=== PATIENT | female | born 1990 | race American Indian/Alaskan Native ===

== ENCOUNTER 2019-02-23 13:22 | Outpatient (CLI) | payer SELFPAY ==
[2019-02-23 13:50] VITALS: BP 119/69
[2019-02-23] MEDS ORDERED: LACTATED RINGERS 500 ML IV ONE (13:58)
[2019-02-23 14:19] LABS: Bilirubin,Urine Negative (Negative); Color,Urine Yellow (Yellow)
[2019-02-23 14:20] LABS: Blood,Urine Negative (Negative)
[2019-02-23 14:21] LABS: Mucus,Urine FEW /HPF
== END 2019-02-23 14:35 | disposition left against medical advice (07) ==
LOC: TRG 13:22
PROVIDERS: ATTEND Obstetrics & Gynecology
DX: O47.02 False labor before 37 completed weeks of gestation, second trimester (principal); Z3A.24 24 weeks gestation of pregnancy
CPT/HCPCS: 81001

== ENCOUNTER 2020-06-19 08:03 | Emergency (ER) | payer MEDICAID ==
--- NOTE | 2020-06-19 08:11 | Emergency Department Report ---
ED Abdominal Pain HPI - General Stated Complaint: SIDE PAIN X 3 DAYS PUI?: No Time Seen by Provider: 06/19/20 08:09 - History of Present Illness Initial Comments: This is a 29-year-old female who presents to the ED complaining of right sided flank pain that began 3 days ago. Patient states that her last menstrual period June 03, 2020. Patient states pain does not radiate anywhere else. Patient states pain is aching and intermittent for the past 3 days. Patient denies fever/chills/nausea vomiting/abdominal abnormal vaginal bleeding or dysuria. MD Complaint: abdominal pain, flank pain Location: RUQ, R flank Radiation: none Migration to: no migration - Related Data Previous Rx's Medication Instructions Recorded Last Taken Type Phenazopyridine [Pyridium] 200 mg PO BID #10 tab 06/19/20 Unknown Rx Sulfamethoxazole/Trimethoprim 1 each PO BID #14 tablet 06/19/20 Unknown Rx [Bactrim DS TAB] Allergies Allergy/AdvReac Type Severity Reaction Status Date / Time No Known Allergies Allergy Verified 02/23/19 13:58 ED Review of Systems ROS: Stated complaint: SIDE PAIN X 3 DAYS Other details as noted in HPI Comment: All other systems reviewed and negative ED Past Medical Hx - Past Medical History Hx Hypertension: No Hx Diabetes: No Hx Deep Vein Thrombosis: No Hx Renal Disease: No Hx Sickle Cell Disease: No Hx Seizures: No Hx Asthma: No Hx HIV: No - Social History Smoking Status: Former Smoker - Medications Home Medications: Home Medications Medication Instructions Recorded Confirmed Last Taken Type Phenazopyridine [Pyridium] 200 mg PO BID #10 tab 06/19/20 Unknown Rx Sulfamethoxazole/Trimethoprim 1 each PO BID #14 tablet 06/19/20 Unknown Rx [Bactrim DS TAB] ED Physical Exam - General General appearance: alert, in no apparent distress - Head Head exam: Present: atraumatic, normocephalic - Eye Eye exam: Present: normal appearance - ENT ENT exam: Present: mucous membranes moist - Neck Neck exam: Present: normal inspection - Respiratory Respiratory exam: Present: normal lung sounds bilaterally. Absent: respiratory distress - Cardiovascular Cardiovascular Exam: Present: regular rate, normal rhythm. Absent: systolic murmur, diastolic murmur, rubs, gallop - GI/Abdominal GI/Abdominal exam: Present: soft, normal bowel sounds. Absent: distended, tenderness, guarding, mass - Extremities Exam Extremities exam: Present: normal inspection - Back Exam Back exam: Present: normal inspection - Neurological Exam Neurological exam: Present: alert, oriented X3 - Psychiatric Psychiatric exam: Present: normal affect, normal mood - Skin Skin exam: Present: warm, dry, intact, normal color. Absent: rash ED Course Vital Signs 06/19/20 08:10 Temperature 98.0 F Pulse Rate 84 Respiratory 14 Rate Blood Pressure 128/88 O2 Sat by Pulse 98 Oximetry ED Medical Decision Making - Lab Data Result diagrams: 06/19/20 08:35 06/19/20 08:35 Laboratory Last Values WBC 5.4 K/mm3 (4.5-11.0) 06/19/20 08:35 RBC 4.53 M/mm3 (3.65-5.03) 06/19/20 08:35 Hgb 11.6 gm/dl (10.1-14.3) 06/19/20 08:35 Hct 36.3 % (30.3-42.9) 06/19/20 08:35 MCV 80 fl (79-97) 06/19/20 08:35 MCH 26 pg (28-32) L 06/19/20 08:35 MCHC 32 % (30-34) 06/19/20 08:35 RDW 18.6 % (13.2-15.2) H 06/19/20 08:35 Plt Count 240 K/mm3 (140-440) 06/19/20 08:35 Lymph % (Auto) Belt Loop Machine Operator 06/19/20 08:35 Add Manual Diff Complete 06/19/20 08:35 Total Counted 100 06/19/20 08:35 Seg Neutrophils % Belt Loop Machine Operator 06/19/20 08:35 Seg Neuts % (Manual) 14.0 % (40.0-70.0) L 06/19/20 08:35 Lymphocytes % (Manual) 70.0 % (13.4-35.0) H 06/19/20 08:35 Reactive Lymphs % (Man) 1.0 % 06/19/20 08:35 Monocytes % (Manual) 11.0 % (0.0-7.3) H 06/19/20 08:35 Eosinophils % (Manual) 4.0 % (0.0-4.3) 06/19/20 08:35 Nucleated RBC % Not Reportable 06/19/20 08:35 Seg Neutrophils # Man 0.8 K/mm3 (1.8-7.7) L 06/19/20 08:35 Band Neutrophils # 0.0 K/mm3 06/19/20 08:35 Lymphocytes # (Manual) 3.8 K/mm3 (1.2-5.4) 06/19/20 08:35 Abs React Lymphs (Man) 0.1 K/mm3 06/19/20 08:35 Monocytes # (Manual) 0.6 K/mm3 (0.0-0.8) 06/19/20 08:35 Eosinophils # (Manual) 0.2 K/mm3 (0.0-0.4) 06/19/20 08:35 Basophils # (Manual) 0.0 K/mm3 (0.0-0.1) 06/19/20 08:35 Metamyelocytes # 0.0 K/mm3 06/19/20 08:35 Myelocytes # 0.0 K/mm3 06/19/20 08:35 Promyelocytes # 0.0 K/mm3 06/19/20 08:35 Blast Cells # 0.0 K/mm3 06/19/20 08:35 WBC Morphology Not Reportable 06/19/20 08:35 Hypersegmented Neuts Not Reportable 06/19/20 08:35 Hyposegmented Neuts Not Reportable 06/19/20 08:35 Hypogranular Neuts Not Reportable 06/19/20 08:35 Smudge Cells Not Reportable 06/19/20 08:35 Toxic Granulation Not Reportable 06/19/20 08:35 Toxic Vacuolation Not Reportable 06/19/20 08:35 Dohle Bodies Not Reportable 06/19/20 08:35 Pelger-Huet Anomaly Not Reportable 06/19/20 08:35 Rachel Rods Not Reportable 06/19/20 08:35 Platelet Estimate Consistent w auto 06/19/20 08:35 Clumped Platelets Not Reportable 06/19/20 08:35 Plt Clumps, EDTA Not Reportable 06/19/20 08:35 Large Platelets Not Reportable 06/19/20 08:35 Giant Platelets Not Reportable 06/19/20 08:35 Platelet Satelliting Not Reportable 06/19/20 08:35 Plt Morphology Comment Not Reportable 06/19/20 08:35 RBC Morphology Not Reportable 06/19/20 08:35 Dimorphic RBCs Not Reportable 06/19/20 08:35 Polychromasia Not Reportable 06/19/20 08:35 Hypochromasia 1+ 06/19/20 08:35 Poikilocytosis Not Reportable 06/19/20 08:35 Anisocytosis Not Reportable 06/19/20 08:35 Microcytosis Not Reportable 06/19/20 08:35 Macrocytosis Not Reportable 06/19/20 08:35 Spherocytes Not Reportable 06/19/20 08:35 Pappenheimer Bodies Not Reportable 06/19/20 08:35 Sickle Cells Not Reportable 06/19/20 08:35 Target Cells Not Reportable 06/19/20 08:35 Tear Drop Cells Not Reportable 06/19/20 08:35 Ovalocytes Not Reportable 06/19/20 08:35 Helmet Cells Not Reportable 06/19/20 08:35 العراقي-Citrus Bodies Not Reportable 06/19/20 08:35 [place] Rings Not Reportable 06/19/20 08:35 Mechelle Cells Not Reportable 06/19/20 08:35 Bite Cells Not Reportable 06/19/20 08:35 Crenated Cell Not Reportable 06/19/20 08:35 Elliptocytes Not Reportable 06/19/20 08:35 Acanthocytes (Spur) Not Reportable 06/19/20 08:35 Rouleaux Not Reportable 06/19/20 08:35 Hemoglobin C Crystals Not Reportable 06/19/20 08:35 Schistocytes Not Reportable 06/19/20 08:35 Malaria parasites Not Reportable 06/19/20 08:35 Larry Bodies Not Reportable 06/19/20 08:35 Hem Pathologist Commnt No 06/19/20 08:35 Sodium 141 mmol/L (137-145) 06/19/20 08:35 Potassium 4.4 mmol/L (3.6-5.0) 06/19/20 08:35 Chloride 107.8 mmol/L (98-107) H 06/19/20 08:35 Carbon Dioxide 27 mmol/L (22-30) 06/19/20 08:35 Anion Gap 11 mmol/L 06/19/20 08:35 BUN 9 mg/dL (7-17) 06/19/20 08:35 Creatinine 0.7 mg/dL (0.6-1.2) 06/19/20 08:35 Estimated GFR > 60 ml/min 06/19/20 08:35 BUN/Creatinine Ratio 13 % 06/19/20 08:35 Glucose 93 mg/dL (65-100) 06/19/20 08:35 Calcium 9.2 mg/dL (8.4-10.2) 06/19/20 08:35 Total Bilirubin 0.20 mg/dL (0.1-1.2) 06/19/20 08:35 AST 17 units/L (5-40) 06/19/20 08:35 ALT 13 units/L (7-56) 06/19/20 08:35 Alkaline Phosphatase 66 units/L (35-129) 06/19/20 08:35 Total Protein 6.8 g/dL (6.3-8.2) 06/19/20 08:35 Albumin 4.0 g/dL (3.9-5) 06/19/20 08:35 Albumin/Globulin Ratio 1.4 % 06/19/20 08:35 HCG, Qual Negative (Negative) 06/19/20 08:35 Urine Color Yellow (Yellow) 06/19/20 11:21 Urine Turbidity Slightly-cloudy (Clear) 06/19/20 11:21 Urine pH 5.0 (5.0-7.0) 06/19/20 11:21 Ur Specific [place] 1.015 (1.003-1.030) 06/19/20 11:21 Urine Protein <15 mg/dl mg/dL (Negative) 06/19/20 11:21 Urine Glucose (UA) Neg mg/dL (Negative) 06/19/20 11:21 Urine Ketones Neg mg/dL (Negative) 06/19/20 11:21 Urine Blood Neg (Negative) 06/19/20 11:21 Urine Nitrite Neg (Negative) 06/19/20 11:21 Urine Bilirubin Neg (Negative) 06/19/20 11:21 Urine Urobilinogen < 2.0 mg/dL (<2.0) 06/19/20 11:21 Ur Leukocyte Esterase Mod (Negative) 06/19/20 11:21 Urine WBC (Auto) 88.0 /HPF (0.0-6.0) H 06/19/20 11:21 Urine RBC (Auto) 3.0 /HPF (0.0-6.0) 06/19/20 11:21 U Epithel Cells (Auto) 1.0 /HPF (0-13.0) 06/19/20 11:21 Urine Bacteria (Auto) 1+ /HPF (Negative) 06/19/20 11:21 Urine Mucus 1+ /HPF 06/19/20 11:21 - Medical Decision Making 29-year-old female presents with a bacterial urinary tract infection ED course: Patient received an antibiotic dose and Motrin during ED stay. Urinalysis is positive for bacteria and WBCs, all other labs within normal limits. I discussed this findings with the patient. I discussed the patient to make sure he completes all of the antibiotic dose even until symptoms resolve. I discussed with the patient on Pyridium will turn his urine orangeish color but will stop once he stops taking pyridium Patient is in no acute distress, patient also has on instructions were given to him. Critical care attestation.: If time is entered above; I have spent that time in minutes in the direct care of this critically ill patient, excluding procedure time. ED Disposition Clinical Impression: UTI (urinary tract infection), Flank pain Disposition: - TO HOME OR SELFCARE Is pt being admited?: No Does the pt Need Aspirin: No Condition: Stable Instructions: Urinary Tract Infection, Adult, Flank Pain, Adult, [id number] Additional Instructions: Make sure to follow up with the primary care physician as discussed. Take all your medications as you've been prescribed. If you have any worsening symptoms or develop new symptoms please return to ED immediately. Prescriptions: Sulfamethoxazole/Trimethoprim [Bactrim DS TAB] 1 each PO BID #14 tablet Phenazopyridine [Pyridium] 200 mg PO BID #10 tab Referrals: SHAHAB ORELLANA MD [Primary Care Provider] - 3-5 Days Forms: Work/School Release Form(ED) Time of Disposition: 11:52
[2020-06-19 08:12] VITALS: BP 128/88
[2020-06-19 09:39] LABS: Hematocrit 36.3 % (30.3-42.9); Hemoglobin 11.6 gm/dl (10.1-14.3); Mean Corpuscular HGB Conc 32 % (30-34); Mean Corpuscular Volume 80 fl (79-97); Platelet Count 240 K/mm3 (140-440); Red Blood Count 4.53 M/mm3 (3.65-5.03); Red Cell Distribution Width 18.6 % (13.2-15.2)
[2020-06-19 10:03] LABS: Alanine Aminotransferase 13 units/L (7-56); Blood Urea Nitrogen 9 mg/dL (7-17); Calcium 9.2 mg/dL (8.4-10.2); Hemolysis Index 17
[2020-06-19 10:17] LABS: BUN/Creatinine Ratio 13
[2020-06-19 11:49] LABS: Bacteria,Urine 1+ /HPF (Negative); Bilirubin,Urine NEG (Negative); Blood,Urine NEG (Negative); Color,Urine Yellow (Yellow); Mucus,Urine 1+ /HPF; Protein,Urine <15 mg/dL mg/dL (Negative); Urobilinogen,Urine < 2.0 mg/dL (<2.0)
[2020-06-19 12:00] LABS: Total Cells Counted 100
[2020-06-19 12:01] LABS: Hypochromasia 1+; Platelet Estimate Consistent w Auto
== END 2020-06-19 12:15 | disposition home or self-care (01) ==
LOC: ED 08:03
DX: N39.0 Urinary tract infection, site not specified (principal); R10.11 Right upper quadrant pain; Z87.891 Personal history of nicotine dependence; Z79.899 Other long term (current) drug therapy
CPT/HCPCS: 36415; 80053; 81001; 84703; 85007; 85025; 87076; 87086; 87186

== ENCOUNTER 2022-01-01 12:39 | Emergency (ER) | payer MEDICAID ==
[2022-01-01 13:19] VITALS: BP 115/60
[2022-01-01 14:06] LABS: Mucus,Urine FEW /HPF; WBC,Urine < 1.0 /HPF (0.0-6.0)
[2022-01-01 14:14] LABS: Basophils # (Auto) 0.1 K/mm3 (0.0-0.1); Eosinophils # (Auto) 0.2 K/mm3 (0.0-0.4); Hematocrit 33.4 % (30.3-42.9); Hemoglobin 10.3 gm/dl (10.1-14.3); Lymphocytes # (Auto) 3.4 K/mm3 (1.2-5.4); Mean Corpuscular HGB Conc 31 % (30-34); Mean Corpuscular Volume 79 fl (79-97); Monocytes # (Auto) 0.8 K/mm3 (0.0-0.8); Monocytes % (Auto) 11.5 % (0.0-7.3); Platelet Count 239 K/mm3 (140-440); Red Blood Count 4.24 M/mm3 (3.65-5.03); Red Cell Distribution Width 15.6 % (13.2-15.2)
[2022-01-01 14:33] LABS: Color,Urine Straw (Yellow)
[2022-01-01 14:35] LABS: Alanine Aminotransferase 14 units/L (7-56); Albumin 3.8 g/dL (3.9-5); Blood Urea Nitrogen 8 mg/dL (7-17); Calcium 8.8 mg/dL (8.4-10.2); Hemolysis Index 0
[2022-01-01 14:36] LABS: BUN/Creatinine Ratio 13
--- NOTE | 2022-01-01 15:43 | Emergency Department Report ---
ED Female HPI - General Chief complaint: Abdominal Pain Stated complaint: SIDE PAIN /NAUSEA Time Seen by Provider: 01/01/22 15:24 Source: patient Mode of arrival: Ambulatory Limitations: No Limitations - History of Present Illness Initial comments: Patient is a 31-year-old female who presents complaining of left flank and pelvic pain for the last 3 days. Last menstrual period November 15 and she believes it is possible that she is . She has had some nausea, constipation, and urinary frequency denies fevers chills vomiting diarrhea dysuria urgency. Denies vaginal discharge or bleeding. She is 7 para 3-1-2-4. MD Complaint: pelvic pain Onset/Timin -: days(s) Location: suprapubic Radiation: RLQ, L flank Severity: moderate Severity scale (0 -10): 5 Quality: cramping Consistency: intermittent Improves with: none Worsens with: none Last Menstrual Period: 11/15/21 (Believes it is possible that she might be .) EDC: 08/22/22 Associated Symptoms: nausea/vomiting (No vomiting). denies: vaginal discharge, vaginal bleeding, fever/chills, headaches, loss of appetite, dysuria, hematuria, rash, seizure, shortness of breath, syncope, weakness - Related Data Sexually active: Yes Previous Rx's Medication Instructions Recorded Last Taken Type Vit No.129/Iron/Folic 1 each PO DAILY #30 tab 01/01/22 Unknown Rx [ Tablet] Allergies Allergy/AdvReac Type Severity Reaction Status Date / Time No Known Allergies Allergy Verified 02/23/19 13:58 ED Review of Systems ROS: Stated complaint: SIDE PAIN /NAUSEA Other details as noted in HPI Comment: All other systems reviewed and negative Constitutional: denies: chills, fever Eyes: denies: vision change ENT: denies: throat pain, congestion Respiratory: no symptoms reported. denies: cough, shortness of breath Cardiovascular: denies: chest pain, palpitations, edema Endocrine: denies: intolerance to cold, intolerance to heat Gastrointestinal: as per HPI Genitourinary: as per HPI Musculoskeletal: as per HPI Skin: denies: rash, lesions Neurological: denies: headache, weakness, numbness, paresthesias Psychiatric: denies: anxiety, depression Hematological/Lymphatic: denies: easy bleeding, easy bruising ED Past Medical Hx - Past Medical History Hx Hypertension: No Hx Diabetes: No Hx Deep Vein Thrombosis: No Hx Renal Disease: No Hx Sickle Cell Disease: No Hx Headaches / Migraines: Yes Hx Seizures: No Hx Asthma: No Hx HIV: No - Surgical History Additional Surgical History: - Family History Family history: no significant - Social History Smoking Status: Former Smoker Substance Use Type: Alcohol (Rare) - Medications Home Medications: Home Medications Medication Instructions Recorded Confirmed Last Taken Type Vit No.129/Iron/Folic 1 each PO DAILY #30 tab 01/01/22 Unknown Rx [ Tablet] ED Physical Exam - General Limitations: No Limitations General appearance: alert, in no apparent distress - Head Head exam: Present: atraumatic, normocephalic - Eye Eye exam: Present: normal appearance - ENT ENT exam: Present: mucous membranes moist - Neck Neck exam: Present: normal inspection, full ROM - Respiratory Respiratory exam: Present: normal lung sounds bilaterally. Absent: respiratory distress, wheezes, rales, rhonchi - Cardiovascular Cardiovascular Exam: Present: regular rate, normal rhythm, normal heart sounds - GI/Abdominal GI/Abdominal exam: Present: soft, tenderness (Suprapubic), normal bowel sounds. Absent: guarding, rebound, rigid, mass - Back Exam Back exam: Present: normal inspection, full ROM. Absent: tenderness - Neurological Exam Neurological exam: Present: alert, oriented X3, CN II-XII intact - Psychiatric Psychiatric exam: Present: normal affect, normal mood - Skin Skin exam: Present: warm, dry, intact, normal color. Absent: rash ED Course Vital Signs 01/01/22 13:08 Temperature 98.6 F Pulse Rate 65 Respiratory 18 Rate Blood Pressure 115/60 [Left] O2 Sat by Pulse 99 Oximetry - Reevaluation(s) Reevaluation #1: 01/01/22 18:13 I did discuss with patient before she went to ultrasound the fact that she would need to follow-up with INSURANCE ACCOUNT REPRESENTATIVE and she verbalized understanding of same. ED Medical Decision Making - Lab Data Result diagrams: 01/01/22 13:47 01/01/22 13:47 - Radiology Data Radiology results: report reviewed [facility] [address] [place] [address] Ultrasound Report Signed Patient: OSMAN MICHAEL MR#: [id number] : 1990 Acct:[id number] Age/Sex: 31 / F ADM Date: 01/01/22 Loc: ED Attending Dr: Ordering Physician: QUIANA CARO Date of Service: 01/01/22 Procedure(s): US OB transvaginal Accession Number(s): [id number] cc: QUIANA CARO US OB <= 14 WEEKS FETUS US OB TRANSVAGINAL INDICATION / CLINICAL INFORMATION: + urine HCG with pelvic pain lmp11/15/21. COMPARISON: None available. FINDINGS: Transabdominal and transvaginal imaging was performed. Intrauterine gestational sac is seen with yolk sac and pole. [place]-rump length is 0.85 cm (6 weeks, 6 days). heart rate is 1:30. No subchorionic hemorrhage is seen. No adnexal lesions are seen. Ovaries are normal aside from a few punctate subcentimeter follicles bilaterally. Scant free fluid is noted in the cul-de-sac. IMPRESSION: 1. Single viable intrauterine with sonographic gestational age of 6 weeks, 6 days. Signer Name: Darren Raymond MD Signed: 01/01/2022 5:00 PM Workstation Name: [id number] Transcribed By: SW Dictated By: Darren Raymond MD Electronically Authenticated By: Darren Raymond MD Signed Date/Time: 01/01/22 1700 DD/ 1658 TD/TT: - Medical Decision Making Abdominal pain in with a 6-week IUP. Will need to follow-up with INSURANCE ACCOUNT REPRESENTATIVE next week. - Differential Diagnosis Abdominal pain in . Consider threatened AB. Critical care attestation.: If time is entered above; I have spent that time in minutes in the direct care of this critically ill patient, excluding procedure time. ED Disposition Clinical Impression: Pelvic pain affecting in first trimester, antepartum, Threatened in early Disposition: 07 LEFT AWOL/ELOPED Is pt being admited?: No Condition: Stable Instructions: Pelvic Pain, Female, [id number], Threatened Miscarriage, [id number], Abdominal Pain (ED) Additional Instructions: Need to follow-up with your INSURANCE ACCOUNT REPRESENTATIVE Tuesday morning or as per referral. Start vitamins. Prescriptions: Vit No.129/Iron/Folic [ Tablet] 1 each PO DAILY #30 tab Referrals: JORGE ALBERTO CORONA MD [Staff Physician] - 3-5 Days Time of Disposition: 18:13 (I went in to give the patient her discharge instructions and she had left without telling anyone.)
--- NOTE | 2022-01-01 17:04 | Ultrasound Report ---
US OB <= 14 WEEKS FETUS US OB TRANSVAGINAL INDICATION / CLINICAL INFORMATION: + urine HCG with pelvic pain lmp7. COMPARISON: None available. FINDINGS: Transabdominal and transvaginal imaging was performed. Intrauterine gestational sac is seen with yolk sac and pole. [place]-rump length is 0.85 cm (6 we eks, 6 days). heart rate is 1:30. No subchorionic hemorrhage is seen. No adnexal lesions are seen. Ovaries are normal aside from a few punctate subcentimeter follicles thang aterally. Scant free fluid is noted in the cul-de-sac. IMPRESSION: 1. Single viable intrauterine with sonographic gestational age of 6 weeks, 6 days. Signer Name: Darren Raymond MD Signed: 01/01/2022 5:00 PM Workstation Name: [id number]
--- NOTE | 2022-01-01 17:04 | Ultrasound Report ---
US OB <= 14 WEEKS FETUS US OB TRANSVAGINAL INDICATION / CLINICAL INFORMATION: + urine HCG with pelvic pain lmp7. COMPARISON: None available. FINDINGS: Transabdominal and transvaginal imaging was performed. Intrauterine gestational sac is seen with yolk sac and pole. [place]-rump length is 0.85 cm (6 we eks, 6 days). heart rate is 1:30. No subchorionic hemorrhage is seen. No adnexal lesions are seen. Ovaries are normal aside from a few punctate subcentimeter follicles thang aterally. Scant free fluid is noted in the cul-de-sac. IMPRESSION: 1. Single viable intrauterine with sonographic gestational age of 6 weeks, 6 days. Signer Name: Darren Raymond MD Signed: 01/01/2022 5:00 PM Workstation Name: [id number]
== END 2022-01-01 18:20 | disposition left against medical advice (07) ==
LOC: ED 12:39
DX: O03.9 Complete or unspecified spontaneous abortion without complication (principal); R10.2 Pelvic and perineal pain; G43.909 Migraine, unspecified, not intractable, without status migrainosus; Z87.891 Personal history of nicotine dependence; Z3A.01 Less than 8 weeks gestation of pregnancy
CPT/HCPCS: 36415; 76801; 76817; 80053; 81001; 83690; 84702; 84703; 85025; 99283